=== PATIENT | male | born 2000 | race Hispanic/Latino ===

== ENCOUNTER 2022-12-25 23:24 | Emergency (ER) | payer OTHER, SELFPAY | END 2022-12-26 00:27 | disposition home or self-care (01) | LOC: CSHERS 23:24 | DX: S51.011A Laceration without foreign body of right elbow, initial encounter (principal); W01.0XXA Fall on same level from slipping, tripping and stumbling without subsequent striking against object, initial encounter; Y93.51 Activity, roller skating (inline) and skateboarding | CPT/HCPCS: 12002 ==